=== PATIENT | female | born 1975 | race Caucasian/White ===

== ENCOUNTER 2017-06-14 14:04 | Inpatient (IN) | payer OTHER, MEDICAID ==
[~2017-06-14] VITALS: Ht 152.4 cm; Wt 139.8 kg
[2017-06-14 14:16] VITALS: BP 101/75
--- NOTE | 2017-06-14 14:38 | NUR ---
Jourdan ambulated to bed 4. RN evaluating patient at bedside.
[2017-06-14] MEDS ORDERED: NACL 0.9% 1,000 ML IV ONE ×2 (14:40→15:30)
--- NOTE | 2017-06-14 14:40 | NUR ---
41/F BIB [facility] FROM [facility] C/O PERSISTANT PRODUCTIVE COUGH X 3 DAYS ABDOMINAL PAIN WITH COUGH---NO DIARRHEA, NO CONSTIPATION, DENIES DYSURIA RECENT RIGHT ANKLE SPRAIN -SEEN IN [facility] 05/28/2017- [place] 06/04/2017 . SILTUSSIN DM, PSEUDOEPHEDRINE 30MG, KEFLEX 500MG (LAST NIGHT) . HX---DM, DOWN'S SYNDROME, ESOPHAGITIS, HYPERLIPIDEMIA, THYROID. RX---LEVOTHYROXINE, PIOGLITAZONE, SIMVASTATIN, MOTRIN.
[2017-06-14] MEDS ORDERED: ONDANSETRON 4 MG/2 ML VIAL IVP ONE (14:55)
[2017-06-14] MEDS ORDERED: KETOROLAC 30 MG/ML VIAL IVP ONE (14:55)
[2017-06-14] MEDS ORDERED: ALBUTEROL 0.083% 2.5 MG/3 ML NEBU INH ONE ×2 (15:05→15:30)
[2017-06-14 15:20] LABS: BASOPHILS # (AUTO) 0.1 K/uL (0.00-0.22); BASOPHILS % (AUTO) 0.7 % (0.0-2.0); EOSINOPHILS % (AUTO) 0.2 % (0.0-4.0); HEMATOCRIT 43.8 % (36-48); HEMOGLOBIN 13.8 g/dL (12.0-16.0); LYMPHOCYTES # (AUTO) 1.5 K/uL (2.5-16.5); LYMPHOCYTES % (AUTO) 8.6 % (20.5-51.1); MEAN CORPUSCULAR HEMOGLOBIN 29 pg (27-31); MEAN CORPUSCULAR HGB CONC 32 g/dL (33-37); MEAN CORPUSCULAR VOLUME 91 fL (80-94); MONOCYTES # (AUTO) 0.8 K/uL (0.8-1.0); MONOCYTES % (AUTO) 4.6 % (1.7-9.3); NEUTROPHILS % (AUTO) 85.9 % (42.2-75.2); PLATELET COUNT (AUTO) 271 K/uL (140-450); RED CELL DISTRIBUTION WIDTH 14.6 % (11.6-13.7); WHITE BLOOD COUNT (AUTO) 17.4 K/uL (4.8-10.8)
[2017-06-14] MEDS ORDERED: PIPERACILLIN/TAZOBACTAM 3.375 GM in DEXTROSE 5% 50 ML IV ONE (15:25)
[2017-06-14] MEDS ORDERED: VANCOMYCIN 1,000 MG in DEXTROSE 5% 250 ML IV ONE (15:25)
[2017-06-14] MEDS ORDERED: PIPERACILLIN/TAZOBACTAM 3.375 GM VIAL IV ONE (15:36)
[2017-06-14] MEDS ORDERED: VANCOMYCIN 1,000 MG VIAL ONE (15:37)
--- NOTE | 2017-06-14 15:38 | NUR ---
RT AT BEDSIDE---INITIATING BIPAP Addendum: 06/14/17 at 1641 by [email or web address] BIPAP 06/27, 50%
--- NOTE | 2017-06-14 15:39 | NUR ---
STARTED PT ON BIPAP PER DR ORDERS.
[2017-06-14 15:43] LABS: ANION GAP 23.6 (8-16); CARBON DIOXIDE 21.3 mmol/L (21-32); CREATININE 1.9 mg/dL (0.6-1.3); POTASSIUM 3.9 mmol/L (3.5-5.1)
[2017-06-14 15:49] LABS: ALBUMIN 2.7 g/dL (3.4-5.0); TOTAL BILIRUBIN 0.8 mg/dL (0.0-1.0)
--- NOTE | 2017-06-14 15:52 | NUR ---
PLACED PT ON BIPAP PER DR CHEEK ORDERS. SETTINGS ARE 12/6, 12 AND KEEPING SPO2 ABOVE 92%. BIPAP IS CONNECTED TO RED OUTLET. MEDIUM MASK. SKIN IS INTACT.HR 109 SPO2 100%. HIP HOP DANCE INSTRUCTOR AT BEDSIDE. PT CURRENTLY ON 10 MH OF ALBUTEROL THRU CONT NEB. WILL CONTINUE TO MONITOR.
--- NOTE | 2017-06-14 16:37 | NUR ---
Patient taken to CT scan via gurjose alberto by antonia. Accompanied by RT and RN.
[2017-06-14] MEDS ORDERED: VANCOMYCIN PER PHARMACY MC PRN (16:50)
[2017-06-14] MEDS ORDERED: HYDROcodone/APAP 7.5/325 MG 1 TAB PO PRN (16:50)
[2017-06-14] MEDS ORDERED: ACETAMINOPHEN 325 MG TAB PO PRN (16:50)
[2017-06-14] MEDS ORDERED: ONDANSETRON 4 MG/2 ML VIAL IVP PRN (16:50)
[2017-06-14] MEDS ORDERED: NACL 0.9% 1,000 ML, NACL 0.9% 1,000 ML IV ONE (16:50)
--- NOTE | 2017-06-14 16:53 | NUR ---
Patient returned from CT scan. RN re-evaluating patient at bedside.
--- NOTE | 2017-06-14 17:04 | NUR ---
TRANSFERRED PT TO CT SCAN ON BIPAP AND BACK TO EMERGENCY DEPT WITH NO INCIDENT.
[2017-06-14] MEDS ORDERED: NACL 0.9% 2,000 ML IV ONE (17:05)
[2017-06-14 17:31] LABS: PROTHROMBIN TIME 12.6 secs (10.8-13.4)
[2017-06-14 17:50] LABS: CHOL/HDL RATIO 4.8 (1-4.5); FREE T4 (FREE THYROXINE) 1.64 ng/dL (0.76-1.46); MAGNESIUM 2.7 mg/dL (1.8-2.4); PHOSPHORUS 5.7 mg/dL (2.5-4.9); THYROID STIMULATING HORMONE 3.61 uIU/mL (0.34-3.74)
[2017-06-14] MEDS ORDERED: VANCOMYCIN 1GM/DEXT 5% PREMIX 200 ML IV SCH ×2 (18:00→21:00)
--- NOTE | 2017-06-14 18:10 | NUR ---
Patient will be admitted to care of DR PASCUAL. Admited to ICU. Will go to room3. Belongings list completed. Report to AKILAH SOTO.
[2017-06-14] MEDS ORDERED: FUROSEMIDE 40 MG/4 ML VIAL IVP SCH (18:15)
[2017-06-14] MEDS ORDERED: NITROGLYCERIN 0.4 MG TAB SL PRN (18:20)
[2017-06-14] MEDS ORDERED: INSULIN LISPRO SLIDING SCALE 100 UNITS/ML VIAL SUBQ PRN (18:30)
[2017-06-14] MEDS ORDERED: DEXTROSE 50% 50 ML SYR IVP PRN (18:30)
--- NOTE | 2017-06-14 18:30 | NUR ---
PT WAS TRANSFERRED FROM ER TO ICU VIA [facility] X 3 ASSISTS. PT IS AAOX4. VS STABLE. NSR ON MONITOR. ON BIPAP 16/6, O2 50%. BILATERAL LUNGS CLEAR UPON AUSCULTATION. PERIPHERAL IV G20 TO LEFT AC PATENT AND INTACT, RECEIVING ORDERED NS BOLUS. ABDOMEN ROUND, SOFT, NON TENDER. EDEMA ON ALL EXTREMITIES NOTED. NO C/O PAIN AT THIS TIME. NO SIGNS OF ACUTE DISTRESS NOTED. SAFETY MEASURES ENSURED. WILL CONTINUE TO MONITOR.
[2017-06-14] MEDS ORDERED: MIDAZOLAM 2 MG/2 ML VIAL IV SCH ×2 (18:45)
[2017-06-14] MEDS ORDERED: LOTC TP (19:05)
[2017-06-14] MEDS ORDERED: SYN.05 PO (19:05)
[2017-06-14] MEDS ORDERED: SIMV40TA1 PO (19:05)
[2017-06-14] MEDS ORDERED: IBUP-2217 PO (19:05)
[2017-06-14] MEDS ORDERED: ALBUTEROL SULFATE/IPRATROPIU 3 ML SOL IH PRN (19:15)
--- NOTE | 2017-06-14 19:30 | NUR ---
RESIDENT BROWN AT BED SIDE DUE A PROCEDURE, PT AGITATED, HOLD TX HHN. AND ORDER FOR ABG , AND UNABLE TO OBTAIN DUE TO SCREAMING AND AGITATION.RESIDENT AT THE BED SIDE AWARE AF THIS.
--- NOTE | 2017-06-14 19:30 | NUR ---
RECEIVED REPORT FROM BRITTANY CRANE AT BEDSIDE. PT IS AAOX4, ABLE TO FOLLOW COMMAND, AGITATED AND RESTLESSNESS. ON B-PAP AT I/E 18/5, RR 12, O2 AT 50%, CRACKLES LUNG SOUNDS, SR ON ELECTRONIC DATA INTERCHANGE SPECIALIST, LARGE SOFT ABDOMEN WITH ACTIVE BOWEL SOUNDS, INCONTINENT WITH B&B'S. GENERALIZED EDEMA NOTED, BLE WEAKNESS NOTED, SKIN IS INTACT, WARM AND DRY TO TOUCH. VSS, DENIES PAIN. PERIPHERAL LINE TO LEFT AC 20GA RUNNING NS BOLUS, SAFETY PRECAUTION IN PLACE, HOB ELEVATED TO 30 DEGREES, DR. BROWN AT BEDSIDE, GOING TO DO CENTRAL LINE INSERTION AT BEDSIDE. Addendum: 06/15/17 at 0658 by Alec Asher RN OPEN WOUND PRESENT, SEE WOUND ASSESSMENT.
[2017-06-14] MEDS: ALBUTEROL SULFATE/IPRATROPIU 3 ML SOL IH SCH (19:35)
--- NOTE | 2017-06-14 19:46 | NUR ---
TIME OUT FOR CENTRAL LINE INSERTION, DR. BROWN WILL PERFORM THE PROCEDURE, RN AND RT AT BEDSIDE FOR ASSIST. PT IS AGITATED, VERSED GIVEN ORDERED.
[2017-06-14 20:00] VITALS: BP 94/46
--- NOTE | 2017-06-14 20:15 | NUR ---
PROCEDURE DONE WITH CENTRAL LINE ON RIGHT IJ WITH TLC, X-RAY DONE BY BEDSIDE.
[2017-06-14] MEDS ORDERED: DOCUSATE SODIUM 100 MG GELCAP PO SCH (21:00)
[2017-06-14] MEDS ORDERED: SIMVASTATIN 40 MG TAB PO SCH (21:00)
[2017-06-14] MEDS ORDERED: METOPROLOL 25 MG TAB PO SCH (21:00)
[2017-06-14] MEDS ORDERED: CLOTRIMAZOLE TP SCH (21:00)
[2017-06-14] MEDS ORDERED: BETAMETHASONE TP SCH (21:00)
[2017-06-14] MEDS ORDERED: ATORVASTATIN 20 MG TAB PO SCH (21:00)
[2017-06-14] MEDS: PIPERACILLIN/TAZOBACTAM 4.5 GM in DEXTROSE 5% 100 ML IV SCH (21:00)
[2017-06-14] MEDS: BLOOD GLUCOSE MONITORING 1 DEV DEV FS SCH (21:14)
[2017-06-14] MEDS: NACL 0.9% 1,000 ML IV SCH (21:20)
--- NOTE | 2017-06-14 21:30 | NUR ---
PT REFUSED PO MEDICATIONS, VERY AGITATED, DR. BROWN MADE AWARE.
[2017-06-14] MEDS ORDERED: MORPHINE SULFATE 2 MG/ML SYR IVP PRN (21:50)
[2017-06-14] MEDS ORDERED: PIPERACILLIN/TAZOBACTAM 4.5 GM VIAL IV ONE (21:54)
[2017-06-14 22:00] VITALS: BP 91/56
--- NOTE | 2017-06-14 22:00 | NUR ---
PT IS VERY AGITATED, PULLING OUT OF THE B-PAP 5 TIMES, AND SCREAMING. DR. BROWN MADE AWARE, WILL ORDER MEDICATIONS FOR THE AGITATION.
--- NOTE | 2017-06-14 22:15 | NUR ---
UNABLE TO OBTAIN ABG, COUPLE OF TIME, RES BROWN AT BED SIDE NOTIFIED. PT SCREAMING TO TOUCH AND AGITATED AND COMBATED.
--- NOTE | 2017-06-14 22:30 | NUR ---
GALAVIZ CATHETER INSERTED ORDERED, CLEAR JUAN C URINE NOTED, COLLECTED URINE AND SENT TO LAB, PT TOLERATED WELL.
[2017-06-15] VITALS (10 sets, daily range): BP systolic 0–107; BP diastolic 0–88
--- NOTE | 2017-06-15 | NUR ---
PT IS STILL AGITATED, TRYING TO PULL THE B-PAP OUT, AFTER EXPLAINED THE RISK AND BENEFIT OF USING THE B-PAP, PT IS CALM DOWN. POSITION CHANGED FOR OFF LOAD PRESSURE.
[2017-06-15] MEDS ORDERED: HEPARIN PER PHARMACY MC PRN (00:20)
[2017-06-15] MEDS ORDERED: hePARIN / DEXT 5% PREMIX 250 ML IV SCH (00:20)
[2017-06-15 00:21] LABS: APPEARANCE,URINE CLOUDY (CLEAR); BILIRUBIN,URINE 1+ (NEGATIVE); BLOOD, URINE 2+ (NEGATIVE); COLOR,URINE YELLOW (YELLOW); LEUKOCYTE ESTERASE ,URINE NEGATIVE (NEGATIVE); NITRITE, URINE NEGATIVE (NEGATIVE); PH,URINE 5.5 (5.0-9.0); UGLUCOSE NEGATIVE (NEGATIVE)
[2017-06-15] MEDS ORDERED: VANCOMYCIN 1,000 MG VIAL ONE (00:56)
[2017-06-15 01:08] LABS: RBC,URINE 20-50 /HPF (0-5); WBC,URINE 0-5 (RARE) /HPF (0-5)
[2017-06-15 01:09] LABS: HYALINE CASTS, URINE 0-10 /LPF (None Seen); URINE AMORPHOUS URATE 4+ /HPF (None Seen)
--- NOTE | 2017-06-15 02:00 | NUR ---
NO CHANGE OF CONDITION AT THIS TIME, PT IS REST IN BED, VSS. POSITION CHANGED FOR OFF LOAD PRESSURE.
--- NOTE | 2017-06-15 04:00 | NUR ---
AM CARE PROVIDED, GALAVIZ CATHETER CARE PROVIDED, POSITION CHANGED FOR OFF LOAD PRESSURE. VSS.
[2017-06-15 05:09] LABS: BASOPHILS # (AUTO) 0.2 K/uL (0.00-0.22); BASOPHILS % (AUTO) 1.4 % (0.0-2.0); EOSINOPHILS # (AUTO) 0.2 K/uL (0-0.4); EOSINOPHILS % (AUTO) 1.1 % (0.0-4.0); HEMOGLOBIN 11.8 g/dL (12.0-16.0); LYMPHOCYTES # (AUTO) 1.1 K/uL (2.5-16.5); LYMPHOCYTES % (AUTO) 7.1 % (20.5-51.1); MEAN CORPUSCULAR HEMOGLOBIN 29 pg (27-31); MEAN CORPUSCULAR HGB CONC 32 g/dL (33-37); MEAN CORPUSCULAR VOLUME 93 fL (80-94); MONOCYTES # (AUTO) 0.6 K/uL (0.8-1.0); MONOCYTES % (AUTO) 3.9 % (1.7-9.3); NEUTROPHILS % (AUTO) 86.5 % (42.2-75.2); PLATELET COUNT (AUTO) 191 K/uL (140-450); RED CELL DISTRIBUTION WIDTH 14.8 % (11.6-13.7)
--- NOTE | 2017-06-15 05:45 | NUR ---
CK BIPAP, NURSES AT BED SIDE CLEANING THE PT, BIPAP CK AND PT STABLE AT THIS TIME, MASK FIX AGAIN ON HER FACE.
[2017-06-15 05:55] LABS: ANION GAP 16.3 (8-16); CARBON DIOXIDE 21.8 mmol/L (21-32); CREATININE 2.6 mg/dL (0.6-1.3); POTASSIUM 5.1 mmol/L (3.5-5.1)
[2017-06-15 05:59] LABS: MAGNESIUM 2.3 mg/dL (1.8-2.4); PHOSPHORUS 7.8 mg/dL (2.5-4.9)
--- NOTE | 2017-06-15 06:00 | NUR ---
PT IS MOANING, TRYING TO REMOVE THE B-PAP, EXPLAINED THE RISK AND BENEFIT OF USING THE B-PAP AGAIN, PT IS CALM DOWN, DENIES PAIN, VSS, POSITION CHANGED FOR OFF LOAD PRESSURE.
[2017-06-15 06:30] LABS: WHITE BLOOD COUNT (AUTO) 15.1 K/uL (4.8-10.8)
[2017-06-15] MEDS ORDERED: LEVOTHYROXINE 0.05 MG TAB PO SCH (06:30)
[2017-06-15] MEDS: NACL 0.9% 1,000 ML IV SCH (06:35)
--- NOTE | 2017-06-15 07:06 | NUR ---
Angel WHITMORE, ADOBE DEVELOPER AND Kailyn WHATLEY, ADOBE DEVELOPER AT BEDSIDE ABG ATTEMPT X 2 UNABLE TO OBTAIN DUE TO DECREASED BLOOD PRESSURE AND PATIENT BEING COMBATIVE ADOBE DEVELOPER TO MONITOR AND ATTEMPT ABG AT A LATER TIME ADOBE DEVELOPER TO INFORM DAY SHIFT RN
[2017-06-15] MEDS: BLOOD GLUCOSE MONITORING 1 DEV DEV FS SCH (07:14)
--- NOTE | 2017-06-15 07:20 | NUR ---
RECEIVED REPORT FROM NOC. PT RESTING IN BED AWAKE. PT A/O X2. PT ON BIPAP I/E 18/6 R 12 FIO2 50. SKIN DRY AND WARM TO TOUCH. LEFT AC SALIN LOCK. AND RIGHT IJ TRIPLE LUMEN CATHETER PRESENT. LUNGS SOUND DIMINISHED. REDNESS PRESENT IN LEFT BREAST FOLD. BOWEL SOUND PRESENT ON ALL FOUR QUADRANTS. GALAVIZ'S CATH IN PLACE. WILL CONTINUE TO MONITOR.
--- NOTE | 2017-06-15 07:24 | NUR ---
REPORT GIVEN TO BRITTANY LANIER FOR CONTINUE OF CARE, PT IS IN STABLE CONDITION AT THIS TIME.
--- NOTE | 2017-06-15 08:00 | NUR ---
DELAY IN SERVICE DUE TO ED CALL
[2017-06-15] MEDS ORDERED: CALCIUM ACETATE 667 MG TAB PO SCH ×2 (08:24→12:00)
--- NOTE | 2017-06-15 08:27 | NUR ---
RESIDENT PHYSICIAN, DR. KELLY MADE AWARE OF BLOOD PRESSURE BEING ON THE LOW SIDE 78/48 MMHG WITH THE MAP OF 58. WILL AWAIT FOR NEW ORDERS.
--- NOTE | 2017-06-15 08:29 | NUR ---
PATIENT HAS BEEN SCREENED AND CATEGORIZED HIGH NUTRITION RISK. PATIENT WILL BE SEEN WITHIN 1-2 DAYS OF ADMISSION. 06/15/17 - 06/16/17 ZOE MEDINA MBA, RD
--- NOTE | 2017-06-15 08:32 | NUR ---
RESIDENT PHYSICIAN, DR. KELLY AT BEDSIDE EVALUATING PATIENT.
[2017-06-15] MEDS ORDERED: ASPIRIN 81 MG TAB.CHEW PO SCH (09:00)
[2017-06-15] MEDS ORDERED: LISINOPRIL 5 MG TAB PO SCH (09:00)
[2017-06-15] MEDS ORDERED: LACTOBACILLUS RHAMNOSUS GG 1 EACH CAP PO SCH (09:00)
[2017-06-15] MEDS ORDERED: FUROSEMIDE 20 MG/2 ML VIAL IVP SCH (09:00)
[2017-06-15] MEDS: ALBUTEROL SULFATE/IPRATROPIU 3 ML SOL IH SCH (09:02)
--- NOTE | 2017-06-15 09:02 | NUR ---
RECEIVED ON A [employer] V60 BIPAP PLUGGED INTO RED OUTLET TOLERATING WELL TO A MEDIUM FACIAL MASK SECURED WITH A HEAD STRAP LOC AWAKE AND AGITATION BREATH SOUNDS DECREASED BILATERAL AIRWAY PATENT
--- NOTE | 2017-06-15 09:25 | NUR ---
LOC AWAKE AND COMBATIVE ABG ATTEMPT UNABLE TO OBTAIN ZERO PULSES AT RIGHT AND LEFT RADIAL/BRACHIAL SITES BLOOD PRESSURE 71/41 SALES COMPENSATION ANALYST TO ATTEMPT AT A LATER TIME
--- NOTE | 2017-06-15 09:50 | NUR ---
AGRICULTURE TEACHER AT BEDSIDE DOING ECHO.
--- NOTE | 2017-06-15 09:50 | NUR ---
DR. SCHMITT AND GROUP ROUNDING ON THE PATIENT. WITH ORDERS TO TRANSFER PATIENT TO HIGHER LEVEL OF CARE.
--- NOTE | 2017-06-15 09:55 | NUR ---
UNABLE TO OBTAIN BLOOD PRESSURE AT THIS TIME. KEPT ROTATING BP CUFF BETWEEN BILATERAL ARMS. RESIDENT PHYSICIAN AT BEDSIDE.
[2017-06-15] MEDS: PIPERACILLIN/TAZOBACTAM 4.5 GM in DEXTROSE 5% 100 ML IV SCH (10:00)
--- NOTE | 2017-06-15 10:12 | NUR ---
INTUBATED BY ED PHYSICIAN DR. CHEEK WITH 7.5 ETT AT THE LEVEL OF 23CM AT THE LEFT LIP. WAS SEDATED WITH 2 DOSES OF ETOMIDATE 20 MG AND 200 MG OF SUCCINYLCHOLINE.
--- NOTE | 2017-06-15 10:13 | NUR ---
DR. SUSU CHEEK ED/MD AT BEDSIDE FOR PATIENT INTUBATION
[2017-06-15] MEDS ORDERED: NOREPINEPHRINE 4 MG in DEXTROSE 5% 250 ML IV PRN (10:15)
[2017-06-15] MEDS ORDERED: NACL 0.9% 1,000 ML IV ONE (10:15)
[2017-06-15] MEDS ORDERED: PROPRANOLOL 1 MG/ML VIAL IVP ONE (10:15)
--- NOTE | 2017-06-15 10:20 | NUR ---
NO OTHER PARAMETERS OBTAINED ON VENTILATOR DUE TO ONGOING CODE BLUE
[2017-06-15] MEDS ORDERED: PROPOFOL 1000 MG/100 ML PREMIX 100 ML IV PRN (10:25)
--- NOTE | 2017-06-15 10:32 | NUR ---
bradycardia code blue called removed from ventillator ambu bag to ett at 100% fio2 Addendum: 06/15/17 at 1048 by Jonathon Whitmore RT Kailyn WHATLEY RCP AND Angel WHITMORE RCP AT BEDSIDE
--- NOTE | 2017-06-15 10:33 | NUR ---
PATIENT BECAME BRADYCARDIC AT 44 BPM. UNABLE TO OBTAIN BP. GABRIELLA VALENCIA WAS CALLED. CPR STARTED. EMERGENCY MEDICATIONS GIVEN, PLEASE REFER TO CODE BLUE SHEET.
--- NOTE | 2017-06-15 10:38 | NUR ---
HR 90, O2 SAT 86 RR 17.
--- NOTE | 2017-06-15 10:40 | NUR ---
BP 86/44 MMHG.
--- NOTE | 2017-06-15 10:40 | NUR ---
PER V.O. DR. CHEEK ETT PULLED BACK TO 21cm
--- NOTE | 2017-06-15 10:47 | NUR ---
CPR STOPPED HR 83 BPM BP 55/49 O2 SAT 97% RR 37. 1L BOLUS RUNNING AT THIS TIME.
--- NOTE | 2017-06-15 11:07 | NUR ---
BS CHECKED 201. DR CHEEK MADE AWARE.
--- NOTE | 2017-06-15 11:18 | NUR ---
RECEIVED A CALL FROM JACY FROM [facility]. SHE SAID PER HER CARDIAC THORACIC SURGEON, THE PATIENT WOULD NEED A PLANT ANATOMY TEACHER TO SEE HER AND ALSO A ECHO DONE HERE. I INFORMER ANTONIO RN DIRECTOR PACKAGING. CALLED [facility] AND FAXED INQUIRY. CALLED MADIE AND FAXED INQUIRY. SPOKE THEN WITH VALENTINE, AND GAVE HER FURTHER INFORMATION AND PHONE NUMBER TO THE RESIDENT AND ATTENDING AND TO THE ICU UNIT. CALLED [facility] AND SPOKE WITH RJ. FAXED INQUIRY TO [phone]
[2017-06-15] MEDS ORDERED: LIDOCAINE 1% 50 ML ONE (11:27)
[2017-06-15 11:37] LABS: HEMATOCRIT 30.6 % (36-48); HEMOGLOBIN 9.3 g/dL (12.0-16.0); MEAN CORPUSCULAR HEMOGLOBIN 29 pg (27-31); MEAN CORPUSCULAR HGB CONC 30 g/dL (33-37); MEAN CORPUSCULAR VOLUME 96 fL (80-94); RED CELL DISTRIBUTION WIDTH 15.5 % (11.6-13.7); WHITE BLOOD COUNT (AUTO) 15.6 K/uL (4.8-10.8)
[2017-06-15 11:38] LABS: PLATELET COUNT (AUTO) 135 K/uL (140-450)
[2017-06-15] MEDS ORDERED: SODIUM BICARBONATE 8.4% PFS 50 MEQ/50 ML SYR IVP ONE ×2 (11:39→11:47)
[2017-06-15 11:40] LABS: CARBON DIOXIDE 16.2 mmol/L (21-32); CREATININE 2.6 mg/dL (0.6-1.3); POTASSIUM 5.2 mmol/L (3.5-5.1)
[2017-06-15 11:45] LABS: CORRECTED WHITE BLOOD COUNT 13.9 K/uL (4.5-11.0)
--- NOTE | 2017-06-15 11:45 | NUR ---
CODE BLUE CALLED PATIENT REMOVED FORM VENTILATOR PLACED ON AMBU BAG TO ENDOTRACHEAL TUBE WITH SUPPLEMENTAL OXYGEN AT 15 LPM
--- NOTE | 2017-06-15 11:45 | NUR ---
GABRIELLA VALENCIA CALLED. DR SEAMAN AT BEDSIDE EVALUATING PATIENT. PLEASE REFER TO GABRIELLA VALENCIA BOOK FOR EMERGENCY MEDS GIVEN.
--- NOTE | 2017-06-15 12:05 | NUR ---
DR. SEAMAN INSERTED ARTERIAL LINE ON PATIENT. PATIENT TOLERATED WELL.
--- NOTE | 2017-06-15 12:15 | NUR ---
DR. SEAMAN PRONOUNCED PATIENT'S . HE SPOKE WITH PATIENT'S FATHER TO INFORM HIM OF PATIENT'S .
--- NOTE | 2017-06-15 12:15 | NUR ---
PATIENT CALLED BY DR. WILNER SEAMAN
--- NOTE | 2017-06-15 13:01 | NUR ---
DEPUTJoselyn HOOD RELEASE THE BODY CASE [id number].
--- NOTE | 2017-06-15 13:20 | NUR ---
TALK TP BOOGIE GREENE NO ORGAN NEED DUE TO DX SEPSIS. CASE #[id number].
--- NOTE | 2017-06-15 13:39 | NUR ---
ECHO COMPLETED. NOTIFIED DR. SCHMITT, RESIDENTS AND DR. SEAMAN OF CRITICAL ECHO FINDING.
--- NOTE | 2017-06-15 14:55 | NUR ---
DIMITRY PT FATHER REGARDING THE MORTUARY HE HAVE [facility] [place] TO ACCEPTING THE REMAIN.
--- NOTE | 2017-06-15 15:15 | NUR ---
CALLED [facility] TALK TO [facility] . [phone] SHE WILL SEND [facility] TO PICK THE REMAIN ABOUT 1900 -2100 PM.
--- NOTE | 2017-06-15 15:20 | NUR ---
THE TELEPHONE CONSENT WAS GIVEN HY HER FATHER ,CLIFF GONZALEZ,
--- NOTE | 2017-06-15 19:30 | NUR ---
RECEIVED ENDORSEMENT FROM YANNICK SOTO. AWAITING FOR PATIENT'S REMAINS TO BE PICKED UP BY MORTUARY. ESTIMATED TIME OF ARRIVAL TO BE BETWEEN [phone].
--- NOTE | 2017-06-15 20:58 | NUR ---
MORTUARY PRESENT ON UNIT TO [employer] REMAINS TO TRANSPORT TO [facility] IN [place], [place].
--- NOTE | 2017-06-15 21:10 | NUR ---
PATIENT'S REMAINS WHEELED OFF VIA GURNEY BY [facility] TO BE TAKEN TO [facility] IN [place], [place].
== END 2017-06-15 12:15 | disposition expired | DRG 871 ==
LOC: MED 14:04 → MIC 17:00
PROVIDERS: ADMIT Family Medicine; ATTEND Family Medicine
PROC: 0BH17EZ Insertion of Endotracheal Airway into Trachea, Via Natural or Artificial Opening (ICD-10-PCS; principal; 2017-06-14)
PROC: 5A12012 Performance of Cardiac Output, Single, Manual (ICD-10-PCS; 2017-06-14)
PROC: 5A1935Z Respiratory Ventilation, Less than 24 Consecutive Hours (ICD-10-PCS; 2017-06-14)
PROC: 02HV33Z Insertion of Infusion Device into Superior Vena Cava, Percutaneous Approach (ICD-10-PCS; 2017-06-14)
PROC: 5A09357 Assistance with Respiratory Ventilation, Less than 24 Consecutive Hours, Continuous Positive Airway Pressure (ICD-10-PCS; 2017-06-15)
DX: A41.9 Sepsis, unspecified organism (principal); R65.21 Severe sepsis with septic shock; I46.9 Cardiac arrest, cause unspecified; J96.01 Acute respiratory failure with hypoxia; J69.0 Pneumonitis due to inhalation of food and vomit; E43 Unspecified severe protein-calorie malnutrition; N17.0 Acute kidney failure with tubular necrosis; E66.01 Morbid (severe) obesity due to excess calories; I31.3 Pericardial effusion (noninflammatory); E86.0 Dehydration; I50.43 Acute on chronic combined systolic (congestive) and diastolic (congestive) heart failure; Z68.43 Body mass index [BMI] 50.0-59.9, adult; E11.9 Type 2 diabetes mellitus without complications; D64.9 Anemia, unspecified; E83.41 Hypermagnesemia; E78.00 Pure hypercholesterolemia, unspecified; E83.39 Other disorders of phosphorus metabolism; E03.9 Hypothyroidism, unspecified; K21.0 Gastro-esophageal reflux disease with esophagitis; Q90.9 Down syndrome, unspecified; Z82.3 Family history of stroke
CPT/HCPCS: 36415; 36600; 71010; 80048; 80053; 81001; 82140; 82150; 82803; 82948; 83036; 83605; 83690; 83735; 83880; 84100; 84439; 84443; 84484; 85025; 85610; 85730; 87040; 87081; 87086; 92950; 93005; 93970; 94002; 94640; 94644; 94660; 96365; 96366; 96367; 96375; 99285; J1642; J1644; J1885; J1940; J2001; J2250; J2405; J2543; J3370; J3490; J7030; J7060; J7613; J7620; Q0092